=== PATIENT | male | born 2000 | race Caucasian/White ===

== ENCOUNTER 2018-02-26 13:01 | Emergency (ER) | payer BC ==
[2018-02-26 13:38] VITALS: BP 112/50
--- NOTE | 2018-02-26 15:11 | UC ---
Skin Complaint HPI - HPI Summary HPI Summary: awoke itching with multiple bug bites----did wash most of his wash but could not finish it----today he had more bits----and itching - History of Current Complaint Chief Complaint: UCRash Time Seen by Provider: 02/26/18 15:09 Stated Complaint: RED RASH ALL OVER Hx Obtained From: Patient Onset/Duration: Sudden Onset, Lasting Days - 2, Still Present Timing: Constant Onset Severity: Moderate Current Severity: Moderate Pain Intensity: 0 Location: Diffuse Character: Redness Aggravating Factor(s): Nothing Alleviating Factor(s): Nothing Associated Signs & Symptoms: Positive: Negative Related History: Insect Bite/Sting - Allergy/Home Medications Allergies/Adverse Reactions: Allergies Allergy/AdvReac Type Severity Reaction Status Date / Time No Known Allergies Allergy Verified 02/26/18 13:38 Review of Systems Constitutional: Negative Skin: Rash - itching red bug butes scattered over body Eyes: Negative ENT: Negative Respiratory: Negative Cardiovascular: Negative Gastrointestinal: Negative Genitourinary: Negative Motor: Negative Neurovascular: Negative Musculoskeletal: Negative Neurological: Negative Psychological: Negative Is Patient Immunocompromised?: No All Other Systems Reviewed And Are Negative: Yes PMH/Surg Hx/FS Hx/Imm Hx Previously Healthy: Yes - Surgical History Surgical History: None - Family History Known Family History: Positive: None Negative: Cardiac Disease, Hypertension, Diabetes - Social History Occupation: Employed Full-time Lives: Dormitory/Roommates Alcohol Use: None 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 Negative: Nasal congestion, Trismus, Muffled voice, Hoarse voice Dental Exam: Normal Neck exam: Normal Neck: Positive: Supple, Nontender, No Lymphadenopathy Respiratory Exam: Normal Respiratory: Positive: Chest non-tender, No respiratory distress, No accessory muscle use Cardiovascular Exam: Normal Cardiovascular: Positive: RRR, Pulses Normal, Brisk Capillary Refill Musculoskeletal Exam: Normal Musculoskeletal: Positive: Strength Intact, ROM Intact, No Edema Neurological Exam: Normal Neurological: Positive: Alert, Muscle Tone Normal Psychological Exam: Normal Skin Exam: Other Skin: Positive: Other - multiple bug bites and all extremities and trunk Course/Dx - Course Course Of Treatment: cool compress. benadryl, prednisone, cortisone cream, wash and dry on high heat all clothing and lines---clearn room move bed---follow with pcp prn - Diagnoses Provider Diagnoses: insect/bed bug bites Discharge - Sign-Out/Discharge Documenting (check all that apply): Patient Departure All imaging exams completed and their final reports reviewed: No Studies - Discharge Plan Condition: Stable Disposition: HOME Prescriptions: predniSONE [Prednisone 20 MG TAB] 40 mg PO DAILY 4 Days #8 tablet Patient Education Materials: Prednisone (By mouth), Diphenhydramine (By mouth) , Insect Bite or Sting (ED), Bed Bugs (ED) Referrals: Roosevelt Gleason MD [Primary Care Provider] - If Needed - Billing Disposition and Condition Condition: STABLE Disposition: Home
[2018-02-26] MEDS ORDERED: predniSONE TAB* 20 MG PO ONE (15:19)
[2018-02-26] MEDS ORDERED: diPHENhydraMINE PO* 50 MG PO ONE (15:19)
== END 2018-02-26 15:35 | disposition home or self-care (01) ==
LOC: UCEAST 13:01
DX: T14.8XXA Other injury of unspecified body region, initial encounter (principal); W57.XXXA Bitten or stung by nonvenomous insect and other nonvenomous arthropods, initial encounter; Y92.9 Unspecified place or not applicable
CPT/HCPCS: 99212; A9270-GY; G0463; J7512